=== PATIENT | male | born 1980 | race Caucasian/White ===

== ENCOUNTER 2017-06-16 21:07 | Emergency (ER) | payer SELFPAY ==
[~2017-06-16] VITALS: Ht 177.8 cm; Wt 68.3 kg
[~2017-06-16 21:07] MED LIST: NOHOMEMEDS
[2017-06-16 21:09] VITALS: BP 168/73
== END 2017-06-16 23:54 | disposition left against medical advice (07) ==
LOC: EME 21:07
DX: S61.412A Laceration without foreign body of left hand, initial encounter (principal); W26.0XXA Contact with knife, initial encounter; Y99.0 Civilian activity done for income or pay; Z53.21 Procedure and treatment not carried out due to patient leaving prior to being seen by health care provider